=== PATIENT | male | born 1960 | race Caucasian/White ===

== ENCOUNTER 2019-02-03 13:01 | Emergency (ER) | payer MEDICAID, SELFPAY ==
[~2019-02-03] VITALS: Ht 180.3 cm; Wt 88.8 kg
--- NOTE | 2019-02-03 13:24 | NUR ---
PT TO ED FOR N/V/LOOSE STOOLS X A FEW YEARS WITH ASSOCIATED GENERAL WEAKNESS. PT CONNECTED TO MONITORS. VSS. AWAITING EDMD ASSESSMENT.
[2019-02-03 13:49] LABS: BASOPHILS # (AUTO) 0.04 x10^3/uL (0-0.1); BASOPHILS % (AUTO) 0 % (0-1); EOSINOPHILS # (AUTO) 0.53 x10^3/uL (0-0.4); EOSINOPHILS % (AUTO) 5 % (1-7); LYMPHOCYTES # (AUTO) 2.01 x10^3/uL (1-3.4); LYMPHOCYTES % (AUTO) 18 % (22-44); MD NO; MEAN CORPUSCULAR HEMOGLOBIN 31.7 pg (27.5-34.5); MEAN CORPUSCULAR HGB CONC 33.3 g/dL (33.2-36.2); MEAN CORPUSCULAR VOLUME 95.4 fL (81-97); MEAN PLATELET VOLUME 7.9 fL (7.4-10.4); MONOCYTES # (AUTO) 0.75 x10^3/uL (0.2-0.8); MONOCYTES % (AUTO) 7 % (2-9); NEUTROPHILS # (AUTO) 8.01 x10^3/uL (1.8-6.8); NEUTROPHILS % (AUTO) 71 % (42-75); PLATELET COUNT 248 x10^3/uL (130-400); RED BLOOD COUNT 5.08 x10^6/uL (4.38-5.82); RED CELL DISTRIBUTION WIDTH 13.5 % (9.4-14.8)
[2019-02-03 13:59] LABS: MICROSCOPIC AUTO
[2019-02-03 14:00] LABS: ALANINE AMINOTRANSFERASE 25 U/L (12-78); ALBUMIN 3.6 g/dL (3.4-5.0); ANION GAP 4 mmol/L (5-15); CALCIUM 8.6 mg/dL (8.5-10.1); CHLORIDE 110 mmol/L (98-107); CREATININE 1.03 mg/dL (0.7-1.3)
[2019-02-03 14:02] LABS: ALKALINE PHOSPHATASE 126 U/L (45-117); BILIRUBIN,TOTAL 0.7 mg/dL (0.2-1.0); TOTAL PROTEIN 6.7 g/dL (6.4-8.2)
[2019-02-03 14:04] LABS: CULTURE INDICATED? YES
--- NOTE | 2019-02-03 14:04 | NUR ---
pt resting in room. vss. no needs expressed. call light within reach. awaiting lab results.
[2019-02-03 14:50] VITALS: BP 99/69
--- NOTE | 2019-02-03 14:51 | NUR ---
pt resting in room. vss. no needs expressed. call light within reach. pt unable to provide stool sample at this time. awaiting us.
== END 2019-02-03 15:32 | disposition home or self-care (01) ==
LOC: ED 15:23
DX: K80.50 Calculus of bile duct without cholangitis or cholecystitis without obstruction (principal)
CPT/HCPCS: 36415; 76700; 80053; 81001; 83690; 85025; 87086; 99284

== ENCOUNTER 2019-02-05 07:44 | Emergency (ER) | payer MEDICAID ==
[~2019-02-05] VITALS: Ht 180.3 cm; Wt 82.0 kg
[2019-02-05] MEDS ORDERED: ONDANSETRON 2MG/ML, 2ML IVPush ONE (08:00)
[2019-02-05] MEDS ORDERED: HYDROmorphone 2 MG/ML, 1ML IVPush PRN (08:00)
[2019-02-05] MEDS ORDERED: SODIUM CHLORIDE FLUSH 10ML SYR IVF ONE (08:00)
[2019-02-05] MEDS ORDERED: ONDANSETRON 2MG/ML, 2ML ONE (08:04)
[2019-02-05] MEDS ORDERED: HYDROmorphone 2 MG/ML, 1ML ONE (08:05)
--- NOTE | 2019-02-05 08:11 | NUR ---
pt to XR
[2019-02-05 08:35] LABS: MICROSCOPIC AUTO
[2019-02-05 08:43] LABS: BASOPHILS # (AUTO) 0.05 x10^3/uL (0-0.1); BASOPHILS % (AUTO) 0 % (0-1); EOSINOPHILS # (AUTO) 0.62 x10^3/uL (0-0.4); EOSINOPHILS % (AUTO) 4 % (1-7); LYMPHOCYTES # (AUTO) 2.23 x10^3/uL (1-3.4); LYMPHOCYTES % (AUTO) 13 % (22-44); MD NO; MEAN CORPUSCULAR HEMOGLOBIN 31.1 pg (27.5-34.5); MEAN CORPUSCULAR HGB CONC 32.6 g/dL (33.2-36.2); MEAN CORPUSCULAR VOLUME 95.3 fL (81-97); MEAN PLATELET VOLUME 7.8 fL (7.4-10.4); MONOCYTES # (AUTO) 1.38 x10^3/uL (0.2-0.8); MONOCYTES % (AUTO) 8 % (2-9); NEUTROPHILS # (AUTO) 12.44 x10^3/uL (1.8-6.8); NEUTROPHILS % (AUTO) 74 % (42-75); PLATELET COUNT 238 x10^3/uL (130-400); RED BLOOD COUNT 4.97 x10^6/uL (4.38-5.82); RED CELL DISTRIBUTION WIDTH 13.3 % (9.4-14.8)
[2019-02-05 08:44] LABS: CULTURE INDICATED? NO
[2019-02-05 08:50] LABS: ALANINE AMINOTRANSFERASE 21 U/L (12-78); ALBUMIN 3.2 g/dL (3.4-5.0); ANION GAP 5 mmol/L (5-15); CALCIUM 8.5 mg/dL (8.5-10.1); CHLORIDE 109 mmol/L (98-107)
--- NOTE | 2019-02-05 08:50 | NUR ---
pt returned from XR, resting on gurney with eyes closed, more comfortable after pain med & able to doze off, responds approp to staff, NAD, comfort measures provided, call light within reach.
--- NOTE | 2019-02-05 08:51 | NUR ---
report given to Rd AL.
[2019-02-05 08:52] LABS: ALKALINE PHOSPHATASE 119 U/L (45-117); BILIRUBIN,TOTAL 0.7 mg/dL (0.2-1.0); TOTAL PROTEIN 6.5 g/dL (6.4-8.2)
--- NOTE | 2019-02-05 09:02 | NUR ---
RECEIVED REPORT FROM SARAI LA, PLAN OF CARE DISCUSSED
--- NOTE | 2019-02-05 09:18 | NUR ---
PT BACK FROM CT VIA [facility], SLEEPING RESP EVEN AND UNLABORED.
[2019-02-05] MEDS ORDERED: OMNIPAQUE 350 MG/ML, 100ML BOTTLE ONE (09:20)
--- NOTE | 2019-02-05 10:24 | NUR ---
WARM BLANKET GIVEN, PT VERALIZED NO NEEDS, SLEEPY. BED RAILS UP X2
[2019-02-05] MEDS ORDERED: MAALOX/HYOSCYAMINE/LIDOCAINE 45 ML BTL ONE (11:25)
[2019-02-05] MEDS ORDERED: MAALOX/HYOSCYAMINE/LIDOCAINE 45 ML BTL PO ONE (11:30)
--- NOTE | 2019-02-05 11:49 | NUR ---
Patient/Caregiver given discharge instructions and they have confirmed that they understand the instructions. Patient ambulatory with steady gait.
[2019-02-05 11:50] VITALS: BP 103/57
== END 2019-02-05 11:52 | disposition home or self-care (01) ==
LOC: ED 08:49
DX: R10.32 Left lower quadrant pain (principal); M79.671 Pain in right foot; R11.0 Nausea
CPT/HCPCS: 36415; 73630; 74022; 74177; 80053; 81001; 83690; 85025; 96374; 96375; 99284; J1170; J2405; Q9967